=== PATIENT | female | born 1935 | race Caucasian/White ===

== ENCOUNTER → 2017-03-11 | Outpatient (CLI) | payer MEDICARE ==
--- NOTE | 2017-03-12 09:16 | NM ---
EXAM DESCRIPTION: Lung Scan, Vent/Perfusion CLINICAL HISTORY: 81 years, Female, CHEST PAIN COMPARISON: None available. FINDINGS: Ventilation/perfusion lung scan is performed using 35.4 mCi technetium 99 M DTPA aerosolized for the ventilation component and 5.1 mCi technetium 99 M MAA for the perfusion component. There is diffuse distribution of radiotracer throughout the lungs bilaterally following aerosolized technetium 99 M DTPA. There are patchy areas of decreased radiotracer activity throughout both lungs, compatible with COPD changes. Radiotracer is also noted within the trachea and some swallowed activity in the stomach. The pulmonary perfusion images with Tc-99m MAA particles show similar areas of distribution of radiotracer as the ventilation component. There is a medium to large pleural-based wedge-shaped mismatch perfusion defect in the left upper lobe, best seen on the LPO projection. This perfusion defect is larger compared to the ventilation defect. One medium to large size pleural-based wedge-shaped mismatch perfusion ventilation defect in the left upper lobe is most compatible with an intermediate probability for acute pulmonary thromboembolism. IMPRESSION: 1. One medium to large size pleural-based wedge-shaped mismatch perfusion ventilation defect in the left upper lobe is most compatible with an intermediate probability for acute pulmonary thromboembolism. Please correlate clinically. 2. COPD changes. Reference (PIOPED criteria): Low probability: < 20% probability of acute pulmonary embolism. Intermediate probability: 20-80% probability of acute pulmonary embolism. High probability: > 80% probability of acute pulmonary embolism. 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
--- NOTE | 2017-03-12 13:46 | CT ---
EXAM DESCRIPTION: CTA Chest CLINICAL HISTORY: 81 years, Female, ELEVATED D DIMER COMPARISON: None TECHNIQUE: Rapid bolus administration of nonionicIV contrast was performed with thin-section axial scanning of the chest performed in a dynamic fashion. Reconstructed multiplanar and three dimensional MIP and/or VRT images were created on a separate dedicated workstation were reviewed along with the source axial images and stored in the patient's medical record. Stenoses were evaluated using the NASCET criteria. This exam was performed according to our departmental dose-optimization program, which includes automated exposure control, adjustment of the mA and/or kV according to patient size and/or use of iterative reconstruction technique. FINDINGS: The lung lynne are clear and adequately expanded without infiltrates or effusions with minimal linear scarring at the anterior left lung base. A small sliding-type hiatal hernia is noted. The upper abdomen is unremarkable. Mild cardiomegaly is noted. Pulmonary vasculature is well-opacified with no evidence of filling defect or embolus. No obstruction is noted. Aortic calcification without aneurysm is evident. The thoracic inlet and superior mediastinum as well as both hilar regions demonstrate no abnormal mass or adenopathy. Bony structures are unremarkable with moderate degenerative spurring along the anterior dorsal spine. IMPRESSION: 1. Negative CT pulmonary angiogram for pulmonary embolus. 2. Clear lung lynne without pulmonary mass or infiltrate or effusion. 3. Moderate cardiomegaly without congestive failure. Electronically signed by: Subhash Quiñonez MD 03/12/2017 1:44 PM PALLET RE[employer]
== END | disposition home or self-care (01) ==
LOC: CT 10:44
PROVIDERS: ATTEND General Practice
DX: R79.1 Abnormal coagulation profile (principal)
CPT/HCPCS: 71275; 78582; A9567

== ENCOUNTER → 2017-04-30 | Outpatient (CLI) | payer MEDICARE | END | disposition home or self-care (01) | LOC: LAB.O 11:54 | PROVIDERS: ATTEND Psychiatry & Neurology Neurology | DX: I67.1 Cerebral aneurysm, nonruptured (principal); I10 Essential (primary) hypertension; G60.3 Idiopathic progressive neuropathy; K50.90 Crohn's disease, unspecified, without complications; M33.90 Dermatopolymyositis, unspecified, organ involvement unspecified; R53.83 Other fatigue; M79.A9 Nontraumatic compartment syndrome of other sites; E53.8 Deficiency of other specified B group vitamins; M31.6 Other giant cell arteritis; F01.50 Vascular dementia, unspecified severity, without behavioral disturbance, psychotic disturbance, mood disturbance, and anxiety; E03.9 Hypothyroidism, unspecified; M51.16 Intervertebral disc disorders with radiculopathy, lumbar region; M35.1 Other overlap syndromes; G35 Multiple sclerosis; G70.00 Myasthenia gravis without (acute) exacerbation; M54.81 Occipital neuralgia; H46.9 Unspecified optic neuritis; M81.8 Other osteoporosis without current pathological fracture; M35.3 Polymyalgia rheumatica; M33.22 Polymyositis with myopathy; G61.81 Chronic inflammatory demyelinating polyneuritis; B02.29 Other postherpetic nervous system involvement; L40.59 Other psoriatic arthropathy; I73.00 Raynaud's syndrome without gangrene; G25.89 Other specified extrapyramidal and movement disorders; M06.9 Rheumatoid arthritis, unspecified; D86.9 Sarcoidosis, unspecified; G47.9 Sleep disorder, unspecified; M32.10 Systemic lupus erythematosus, organ or system involvement unspecified; G45.9 Transient cerebral ischemic attack, unspecified; G50.0 Trigeminal neuralgia; R79.1 Abnormal coagulation profile ==